=== PATIENT | female | born 1995 | race Caucasian/White ===

== ENCOUNTER 2018-01-30 11:00 | Emergency (ER) | payer BC ==
[2018-01-30 11:06] VITALS: BP 127/81
--- NOTE | 2018-01-30 11:39 | EDPHY ---
H & P Stated Complaint: vaginal itching and lip swelling Time Seen by Provider: 01/30/18 11:13 HPI/ROS: CHIEF COMPLAINT: Hollie vaginal itching HISTORY OF PRESENT ILLNESS: 22-year-old immunocompetent female seen at urgent care yesterday for suspected UTI, diagnosed urinary tract infection, started on Bactrim. She has taken 1 dose is of the Bactrim. She is complaining of itching to her labia majora and mons pubis since this morning. No intraoral lesions. No fever or chills. No nausea or vomiting. No abdominal pain. PRIMARY CARE PROVIDER: REVIEW OF SYSTEMS: A ten point review of systems was performed and is negative with the exception of the items mentioned in the HPI PAST MEDICAL & SURGICAL HISTORY: No pertinent medical or surgical history SOCIAL HISTORY: Single PHYSICAL EXAM (Prior to examination, patient consented to physical exam, hands were washed and my usual and customary physical exam procedures followed) 1) GENERAL: Well-developed, well-nourished, alert and oriented. Appears to be in no acute distress. 2) HEAD: Normocephalic, atraumatic 3) HEENT: Pupils equal, round, reactive to light bilaterally. Sclera anicteric. Nasopharynx, oropharynx, clear, no lesions. No aphthous ulcerations. Ears bilaterally with normal tympanic membranes. 4) NECK: Full range of motion, no meningeal signs. 5) LUNGS: Clear auscultation bilaterally, no wheezes, no rhonchi, no retractions. 6) HEART: Regular rate and rhythm, no murmur, no heave, no gallop. 7) ABDOMEN: No guarding, no rebound, no focal tenderness, negative McBurney's, negative Hunter's, negative Rovsing's, negative peritoneal sign, 8) MUSCULOSKELETAL: Moving all extremities, no focal areas of tenderness, no obvious trauma. No peripheral edema or discoloration. 9) BACK: No CVA tenderness, no midline vertebral tenderness, no fluctuance, no step-off, no obvious trauma, no visual or palpable abnormality. 10) SKIN: No rash, no petechiae. 11) (examination with nurse Fernandez at bedside): Pubic hair is shaved, there is an erythematous patch is patch which has been excoriated with no signs of super infection. There is mild erythema to the labia majora with no lesions no signs of cellulitis no signs of Tabatha's gangrene. Perineum unremarkable. No vesicles no lesions.. DIFFERENTIAL DIAGNOSIS: In no particular include but limited to medication adverse effect, contact dermatitis, Robertson-Terrance syndrome - Personal History LMP (Females 10-55): 22-28 Days Ago Current Tetanus/Diphtheria Vaccine: Yes Current Tetanus Diphtheria and Acellular Pertussis (TDAP): Yes - Medical/Surgical History Hx Asthma: Yes Hx Chronic Respiratory Disease: No Hx Diabetes: No Hx Cardiac Disease: No Hx Renal Disease: No Hx Cirrhosis: No Hx Alcoholism: No Hx HIV/AIDS: No Hx Splenectomy or Spleen Trauma: No Other PMH: asthma, - Social History Smoking Status: Never smoked Constitutional: Initial Vital Signs Temperature (C) 37.2 C 01/30/18 11:04 Heart Rate 84 01/30/18 11:04 Respiratory Rate 16 01/30/18 11:04 Blood Pressure 127/81 H 01/30/18 11:04 O2 Sat (%) 97 01/30/18 11:04 O2 Delivery Mode Room Air Allergies/Adverse Reactions: No Known Allergies Allergy (Unverified 01/30/18 11:04) Home Medications: Medication Instructions Recorded Bactrim DS 01/30/18 Bcp 01/30/18 Cephalexin [Keflex] 500 mg PO TID 7 Days cap 01/30/18 Medical Decision Making ED Course/Re-evaluation: Doubt Robertson-Terrance, although this is considered in the differential diagnosis. Doubt anaphylaxis. Patient notes prior reaction with sulfa based medication the past. Recommend discontinuation. For urinary tract infection transitioning to Keflex. Usual and customary discharge precautions instructions provided. She feels comfortable being discharged. I saw this patient independently based on established practice protocols. Care of patient under supervision of secondary supervising physician Dr Colin . Departure - Departure Disposition: Home, Routine, Self-Care Clinical Impression: Allergic reaction Qualifiers: Encounter type: initial encounter Qualified Code(s): T78.40XA - Allergy, unspecified, initial encounter Urinary tract infection Qualifiers: Urinary tract infection type: acute cystitis Hematuria presence: with hematuria Qualified Code(s): N30.01 - Acute cystitis with hematuria Condition: Good Instructions: Urinary Tract Infection in Women (DC) Additional Instructions: Return to the ER if you develop worsening rash, if you develop tenderness or lesions in your mouth, diarrhea, or any other symptoms that concern you. Referrals: [facility] [Other] - 2-3 days, call for appt. Prescriptions: Cephalexin [Keflex] 500 mg PO TID 7 Days cap
== END 2018-01-30 11:54 | disposition home or self-care (01) ==
DX: N30.01 Acute cystitis with hematuria (principal); T78.40XA Allergy, unspecified, initial encounter; J45.909 Unspecified asthma, uncomplicated